=== PATIENT | male | born 1980 | race Two or more races ===

== ENCOUNTER 2024-03-11 23:27 | Emergency (ER) | payer OTHER ==
[~2024-03-11] VITALS: Ht 175.3 cm; Wt 75.0 kg
[2024-03-11 23:49] VITALS: BP 132/83; PULSE 75; RESP 16; TEMP 97.3
[2024-03-12] MEDS: CEPHALEXIN MONOHYDRATE 500 MG CAPSULE PO ONE (00:52)
[2024-03-12] MEDS: TraMADol HCL 50 MG TABLET PO ONE (00:52)
[2024-03-12] MEDS ORDERED: DOXY-354 PO (17:11)
[2024-03-12] MEDS ORDERED: TRAM50TA5 PO (17:11)
[2024-03-12] MEDS ORDERED: CEPH-558 PO (17:11)
== END 2024-03-12 01:08 | disposition left against medical advice (07) ==
LOC: EMS 23:27
DX: F10.129 Alcohol abuse with intoxication, unspecified (principal); M79.661 Pain in right lower leg; F17.210 Nicotine dependence, cigarettes, uncomplicated; F12.90 Cannabis use, unspecified, uncomplicated; Z79.899 Other long term (current) drug therapy; Y90.6 Blood alcohol level of 120-199 mg/100 ml
CPT/HCPCS: 71045; 99284

== ENCOUNTER 2024-03-12 16:40 | Emergency (ER) | payer OTHER ==
[~2024-03-12] VITALS: Ht 175.3 cm; Wt 75.0 kg
[2024-03-12] MEDS ORDERED: DOXY-354 PO (17:11)
[2024-03-12] MEDS ORDERED: TRAM50TA5 PO (17:11)
[2024-03-12] MEDS ORDERED: CEPH-558 PO (17:11)
[2024-03-12 17:17] VITALS: BP 139/81; PULSE 97; RESP 20; TEMP 98.9
== END 2024-03-12 17:38 | disposition home or self-care (01) ==
LOC: EMS 16:44
DX: L03.116 Cellulitis of left lower limb (principal); F10.10 Alcohol abuse, uncomplicated; Z59.00 Homelessness unspecified; F17.210 Nicotine dependence, cigarettes, uncomplicated; F12.90 Cannabis use, unspecified, uncomplicated
CPT/HCPCS: 99283